=== PATIENT | male | born 1970 | race Caucasian/White ===

== ENCOUNTER 2020-11-07 10:02 | Inpatient (IN) | payer BC ==
[~2020-11-07] VITALS: Ht 175.3 cm; Wt 86.2 kg
--- NOTE | 2020-11-07 12:50 | NUR ---
REPORT RECEIVED FROM CECILLE GRUBBS. ANTONIO PTS ARRIVAL TO UNIT.
--- NOTE | 2020-11-07 12:56 | EKG ---
[facility] [address] [facility] [facility] [place], [place] [address] Signed Normal sinus rhythm Normal ECG No previous ECGs available Confirmed by STEPHANI DONOHUE MD ([id number]) on 11/07/2020 12:55:44 PM Electronically Signed By: STEPHANI DONOHUE MD 11/07/20 1256 PATIENT NAME: CAESAR LOPEZ JR Electrocardiogram DATE OF : 70 PHYSICIAN: STEPHANI DONOHUE MD REPORT #: [id number] REPORT IS CONFIDENTIAL AND NOT TO BE RELEASED WITHOUT AUTHORIZATION
--- NOTE | 2020-11-07 13:12 | NUR ---
PT ARRIVED TO MED/SURG. PT TRANSFERES SELF TO BED, STEADY ON FEET. PT ON 2L O2 BY NE WITH OXYGEN SATRUATIONS 90-95%, PT PLACED ON REMOTE TELEMETRY PULSE OX MONTORING. PT DENIES PAIN AND NAUSEA. PT OREINTED TO ROOM. DEMONSTRATES USE OF CALL LIGHT. PT ALERT AND OREINTED TO ALL, NERUO ASSESSMENT WNL. RHONCHI HEARD THROUGHOUT LUNGS. PT TACHPENIC AND LABORED BREATHING NOTED WITH ANY ACTIVITY AND DURING COUGHING FITS. SHALLOW BREATHING. I.S. USE TAUGHT PT DEMONSTRATES US OF I.S. REACHIGN 500ML X5 AND 750ML X2. COUGHING FITS NOTED. PT DROPS TO 87% DURING COUGHING TIMES. COUGH MEDICATION GIVEN (SEE MAR). PT REPORTS OCCATIONAL DIARRHEA RECENTLY, LAST EPISODE THIS MORNING. PT REPORTS "NO APPITITE AT ALL" WELL LOSS OF SENSE OF TASTE AND SMELL. PT NOTED TO DESATURATE TO 87% ON 2L . PT PLACED ON 4L O2 BY NE AT THIS TIME WITH OXYGEN SATURATIONS 90-92%. PRONING EDUCATION DONE WITH PT. PT PREFERES TO START WITH LEFT SIDE LYING POSITION. NO ADDITIONAL REQEUSTS OR COMPLAINTS AT THIS TIME. CALL LIGHT WITHIN REACH. BED RAILS UP.
--- NOTE | 2020-11-07 14:25 | NUR ---
PUMP ALARMING, INFUSION AND FLUSH COMPLETE. IV ASSESSED, WNL. BRISK BLOOD RETURN NOTED. LINE FLUSHED AND SALINE LOCKED PER PROTOCOL, ALCOHOL CAP APPLIED. PT RESTING IN BED WATCHING TV. PT DENIES PAIN AND NAUSEA. O2 SATURATIONS 94% ON 4L O2 BY NC. CALL LIGHT WITHIN REACH. BED RAILS UP.
--- NOTE | 2020-11-07 15:22 | NUR ---
THIS RN TO ROOM TO CHECK ON PT. PT RESTING ON BACK WATCING TV. O2 SATURATION REMAINS 90-94 ON 4L O2 BY C HUMDIFICATION ADDED TO NC. PT DENIES PAIN AND NAUSE. NO ADDITIONAL REQUESTS OR COMPLAINTS. CALL LIGHT WITHIN REACH. BED RAILS UP.
--- NOTE | 2020-11-07 16:27 | NUR ---
THIS RN TO ROOM TO CHECK ON PT. PT RESTING ON BACK. REPORTS HE HAS BEEN USING HIS I.S. AND REACHING ~600ML WITH EACH INTAKE. DINNER ORDER PLACED. PT DENIES PAIN AND NAUSEA. O2 AT 94% ON 4L O2 BY NC. PT DEMONSTRATES USE OF I.S. WITH THIS RN REACHING 500ML X3. NO ADDITIONAL REQUETS OR COMPLAINTS. CALL LIGHT WITHIN REACH. BED RAILS UP.
--- NOTE | 2020-11-07 16:37 | NUR ---
THIS RN TO ROOM TO CHECK ON PT. PT RESTING ON BACK WATCHING TV. DINNER ORDER PLACED FOR PT WHO STATES "I'M ACTUALLY A LITTLE HUNGRY." PT ENCOURAGED TO TRY PRONING POSITON. PT MOVES SELF INTO PRONE AND BEGINS A COUGHING FIT WHICH INHIBITS OXYGENATION. O2 INCREASED TO 6L AND COUGHING MEDICATION GIVEN. PT CALMS AFTER 15 MINUTES AND RETURNS TO BASELINE. PT ASSISTED, WITH SLOW MOVEMENTS ENCORUAGED INTO PRONE. PT AGREES TO STAY PRONING FOR 20 MINUTES. O2 SATURATIONS 93% ON 4L O2 BY NC. BED RAILSUP. CALL LIGHT VEGA DYER.
--- NOTE | 2020-11-07 17:00 | NUR ---
PTS CARLTON CALLED AND UPDATED ON PTS STATUS AND PLAN OF CARE. TULIOSYEDA VERBALIZES UNDERSTANDING OF PLAN OF CARE STATES HER QUESTIONS HAVE BEEN ANSWERED.
--- NOTE | 2020-11-07 17:05 | NUR ---
PT ADMITTED TODAY FOR COVID 19 PNEUMONIA. PT INDEPENDANT IN ROOM AND STEADY ON FEET AT THIS TIME. PT TOELRATING REGULAR DIET WITH MINIMAL APPTITIE. LUNG SHOULD SHOWING RONCHIN THROUGHOUT. FREQUENT COUGHING EPISODES NOTED, PRN MEDICATION GIVEN. PT ON 4L O2 BY NC WITH OXYGEN SATURATIONS ABOVE 90%. I.S. USE ENSURED, PT REACHING 500-750ML. PRONING PROTOCOLS EXPLAINED AND PT PARTICIPATING IN PRONING THIS SHIFT. PT VOIDING QUANTITY SUFFICIENT, PO HYDRATION ENCORUAGED. PT USES CALL LIGHT APPRORPRIATLY.
--- NOTE | 2020-11-07 18:11 | NUR ---
DINNER DELIVERED TO PT. PT RESTING ON BACK. STATES HE WAS ABLE TO STAY IN PRONING POSITION FOR 25 MINUTES. PT REORTS APPITTIE IS BETTER "I WANT TO EAT" BUT TASTE REMAINS HINDERED "BUT I CAN'T TATES IT." PT ASSISTED TO SITTING POSITION, OXYGEN SATURATIONS REMAIN ABOVE 90% ON 4L O2 BY NC WITH ACTIVITY OF EATING. PT DENIES ADDITIONAL REQUESTS OR COMPLAINTS. CALL LIGHT WITHIN REACH.
--- NOTE | 2020-11-07 19:31 | NUR ---
PATIENT SITTING IN BED IN SEWMI-FOWLERS POSITION ON 4L/NC WITH O2 SAT=93%. PATIENT HAS NO CARE NEEDS AT THIS TIME. CALL LIGHT IS IN REACH.
--- NOTE | 2020-11-07 21:01 | NUR ---
PATIENT RESTING IN BED IN SEMI-FOWLERS POSITION. ENCOURAGED PATIENT TO TURN TO HIS SIDES AND TO PRONE FOR AT LEAST 30 MINUTES TO 2HOURS AT A TIME THROUGHOUT THE NIGHT. PATIENT VERBALIZED UNDERSTANDING, BUT WAS NO INTERESTED IN PRONING EVEN THOUGH THIS RN INFORMED PATIENT I COULD HELP HIM DO IT. PATIENT ALSO REFUSED HIS ENOXAPARIN SQ INJECTION AND TOOK DOWN THE NAME OF THE MEDICATION TO RESEARCH ON HIS PHONE BEFORE HE DECIDES TO TAKE IT. COUGH SYRUP AND MELATONIN PO WERE GIVEN. PATIENT'S ICE WATER WAS REFILLED, VS COMPLETE, WELL THE EVENING ASSESSMENT. CALL LIGHT IS IN REACH AND PATIENT HAD NO OTHER CARE NEEDS AT THIS TIME.
--- NOTE | 2020-11-07 23:20 | NUR ---
PATIENT RESTING IN BED QUIETLY WATCHING TV. URINAL EMPTIED OF 175MLS. PATIENT REMAINS ON 4L/NC AT A SAT=93%. PATIENT VOICED NO CARE NEEDS AT THIS TIME. CALL LIGHT IS IN REACH.
--- NOTE | 2020-11-08 01:20 | NUR ---
PATIENT VS AND ASSESSMENT COMPLETE. PATIENT REMAINS ON 4L/NC AT 93% SATURATION. COUGH SYRUP GIVEN AND PATIENT GIVEN WARM BLANKETS AND ROOM TEMP TURNED UP TO 70F. PATIENT'S CALL LIGHT IS IN REACH AND HE HAS NO OTHER NEEDS AT THIS TIME.
--- NOTE | 2020-11-08 02:30 | NUR ---
CALL LIGHT ANSWERED. ICE WATER X2 CUPS PROVIDED. EMPTIED URINAL. NO OTHER NEEDS AT THIS TIME.
--- NOTE | 2020-11-08 04:31 | NUR ---
pATIENT RESTING QUIETLY ON HIS RIGHT SIDE, EYES CLOSED, RESPIRATIONS REGULAR AND EVEN, AND CALL LIGHT IS IN REACH. O2 SATS ARE 92% ON 4L/NC.
--- NOTE | 2020-11-08 05:27 | NUR ---
PATIENT'S AM LABS DRAWN. VS ARE STABLE EXCEPT A FEVER OF 100.6F AND PO TYLENOL WAS GIVEN. PATIENT IS VOIDING QUANTITY SUFFICIENT. PATIENT REMAINS ON 4L/NC WITH AN O2 SAT OF 91%. PATIENT DENIED THE NEED FOR COUGH MEDICATION AT THIS TIME AND DENIED ANY PAIN. PATIENT HAS NO OTHER CARE NEEDS AT THIS TIME AND CALL LIGHT IS IN REACH.
--- NOTE | 2020-11-08 08:22 | NUR ---
Pateint has had am care, vitals, and I&Os done. Call light is in reach. Patient is asking for more water with ice. There are no other requests. Paitent refused breakfast. Patient has a high temp. 100.1.
--- NOTE | 2020-11-08 08:30 | NUR ---
Patient in bed watching tv in semi-fowlers position, a&ox4. Patient's respirations non labored at this time, sp02 93% on 3.5l per nc. Patient reports he feels sob at rest. Encouraged patient to prone at this time and as much as possible, pt reports he understand the benefits of proning and will self prone shorly. Clear ensures provided. Pt reports decreased appetite and inability to taste much. Patient has a low grade temperature at this time.
--- NOTE | 2020-11-08 08:50 | NUR ---
Tessalon yury 100mg po admin for cough.
--- NOTE | 2020-11-08 09:15 | NUR ---
Patient status update provided to patient's [employer] per phone.
--- NOTE | 2020-11-08 13:00 | NUR ---
Patient in semi-fowlers position in bed. Vital signs taken, oxygen 93% on 8L per nc. Patient reports continued shortness of breath. Positioned patient to right lateral side. Patient reports he will self prone after a bit. Respirations 32/min. Cool compress provided as pt reports he feels hot. Fresh water at bedside. Patient afebrile at this time.
--- NOTE | 2020-11-08 18:17 | NUR ---
Patient vitals, I&Os are complete. Water was refilled. Patient has no requests at this time. I asked the patient if they have the urge to use the commode but the patient said no. The patient has not had a BM all day. The RN is notified. Call light is in reach.
--- NOTE | 2020-11-08 20:03 | NUR ---
RECEIVED REPORT FROM DAY SHIFT RN. PATIENT IS RESTING IN BED. PATIENT DENIES ANY NEEDS. CALL LIGHT IN REACH.
--- NOTE | 2020-11-08 22:00 | NUR ---
PATIENT ASSESEMENT COMPLETED. PATIENT IS RESTING IN BED WATCHING TV. PATIENT IS GRUNTING AND TAKING SLOW SHORT BREATHS. PATIENT DENIES BEING SOB. PATIENT EDUCATED ON PURSED LIPPED BREATHING AND FOCUSING ON SLOWING HIS BREATH. PATIENT WAS ABLE TO DEMONSTRATE PURSED LIPPED BREATHING. PATIENT WAS ABLE TO SLOW RR AND GRUNTING HAS SUBSIDE. PATIENT IS ON 7.5L VIA NC. PATIENT IS AL AND IV FLUSHES WELL. PATIENTS EVENING MEDICATIONS GIVEN PER ORDER. VITALS TAKEN AND RECORDED. INTKAE AND OUPUT RECORDED. NO FURTHER NEEDS NOTED. CALL LIGHT IN REACH.
--- NOTE | 2020-11-09 00:20 | NUR ---
PATIENT IS IN BED RESTING AND WATCHING TV. PATIENT REMAINS ON 7.5L VIA NC AND HIS OXYGEN SATURATION IS 97%. PATIENT DENIES ANY SOB. NO NEEDS NOTED. CALL LIGHT IN REACH.
--- NOTE | 2020-11-09 01:56 | NUR ---
PATIENT IS RESTING IN BED WITH EYES CLSOED, RR 19. OXYGEN SATURATION IS 94%. URINAL EMPTIED. CALL LIGHT IN REACH.
--- NOTE | 2020-11-09 06:35 | NUR ---
PATIENT ASSESMENT COMPLETED. PATIENT REMAINS ON 7.5L VIA AR. PATIENT DENIES ANY SOB. VITALS TAKEN AND RECORDED. INTAKE AND OUPUT RECORDED. PATIENTS LABS DRAWN AND SENT TO THE LAB. PATIENTS IV FLUSHES WELL AND IS SL PER ORDER. PATIENT IS ON TELE #2 AND OXYGEN SATURATION IS 92%. PATIENTS ICE WATER REFILLED. URINAL EMPTIED. PATIENT DENIES ANY NEEDS. CALL LIGHT IN REACH.
--- NOTE | 2020-11-09 07:30 | NUR ---
REPORT RECEIVED FROM RUDI ODEN. PT RESTING IN BED ON LEFT SIDE, OXYGEN SATURATION 91% ON 7.5L O2 BY HIGH FLOW HUMIDIFIED NC. PT DENIES REQUESTS OR COMPLAINTS AT THIS TIME. CALL LIGHT WITHIN REACH. BED RAILS UP.
--- NOTE | 2020-11-09 08:22 | NUR ---
MORNING ASSESSMENT AND MEDICATION DUE. PT IN PRONE POSITION WITH OXYGEN SATURATIONS 90-93% ON 7.5L O2 BY NM. PT REPORTS HE "SLEPT ALL NIGHT." AND STATES HE IS GENERALLY FEELING BETTER, "JUST TIRED OF WORRING ABOUT IT." PT DENIES PAIN, NAUSE AND ANY DIARRHEA. PT CONTINUES TO HAVE COUGHING FITS WITH GRUNTING, ABDOMINAL MUSCLE USE, AND RETRACTIONS NOTED DURING COUGHING FITS. LUNG SOUNDS CLEAR BUT VERY TIGHT AND DEMINISHED IN ROSA BASES. TACHYPENA NOTED THROUGHOUT WITH SHALLOW BREATHING. EDUCTION DONE WITH PT REGARDING MINDFUL BREATHING AND SLOWING RESPIRATORY RATE. PT DEMONSTRATES UNDERSTANDING AND WORK OF BREATHING IMPROVES WITH SLOW BREATHING. PT CONTINUES TO REPORT LACK OF APPTITIE AND VERY LITTLE INTAKE. CLEAR ENSURE PROVIDED. O2 INCREASED TO 16L O2 BY NM FOR SHOWER. STAND BY ASSIST UP TO SHOWER. LINENS CHANGED. PT INDEPENDANT WITH SHOWER, COUGH AND GRUNTING INCREASES WITH SHOWER/ACTIVITY. BUT PT ABLE TO MAINTAIN OXYGEN SATURATIONS 88-92%. PT DEMONSTRATES USE OF CALL LIGHT. CALL LIGHT WITHIN REACH.
--- NOTE | 2020-11-09 08:38 | NUR ---
PT FINISHED WITH SHOWER. BACK TO BED. O2 87-91% ON 16L O2 WITH ACTIVITY. PT BACK TO BED, INDEPENDANT. PT WEANED BACK TO 7L 2 BY MD WITH OXYGEN SATRUATIONS 90-93%. PT REMAINS SITTING AT EDGES OF BED. NO ADDITIONAL REQEUSTS OR COMPLAINTS. CALL LIGHT WITHIN REACH.
--- NOTE | 2020-11-09 09:58 | NUR ---
Patient vitals, I&Os are done. Call light is in reach and patient is talking with RN. Patient will be served an ensure with ice.
--- NOTE | 2020-11-09 10:01 | NUR ---
Patient had 31 resp. and 100.1 Temp, RN was notified and in the room.
--- NOTE | 2020-11-09 10:03 | NUR ---
THIS RN TO ROOM TO CHECK ON PT. PT NOTED TO HAVE INCREASED RESPIRATION AND TEMPERATURE. TEMPERATURE REASSESED AND FOUND TO BE 100.1 DEGREES FARIGHENIGHT. TYELNOL GIVEN. NOTIFIED PER PROTOCOL. REMDESIVIR STARTED. PT WEANED BACK TO 7L O2 BY ME, MAINTAINING OXGYEN SATURATIONS 89-93%. PT ENCOURAGED TO PRONE. PT DENICLINES AT THIS TIME. I.S. USE DEMONSTRATED PT REACHIES 500ML X5. PT LYING ON BACK WITH HEAD OF BED ELEVATD TO 11 DEGREES. NO ADDITIONAL REQUESTS OR COMPLAINTS. CALL LIGHT ELENAHTIN REACH. BED RAILS UP.
--- NOTE | 2020-11-09 10:32 | NUR ---
PUMP ALARMING, INFUSION AND FLUSH COMPLETE. PT CONTINUES RESTING IN BED. IV ASSESSED, WNL. SALINE LOCKED AND ALCHOL CAP APPLIED PER PROTOCOL. MD TO BED SIDE FOR ROUNDS. PT VERBALIZES UNDERSTANDING OF PLAN OF CARE AND STATES HIS QUESTIONS HAVE BEEN ANSWERED. PT REPOSOTIONED TO LEFT SIDE. REMAINS ON 7L O2 BY NC WITH OXYGEN SATURATIONS 90-92%. CALL LIGHT WIHTIN REACH. BED RAILS UP.
--- NOTE | 2020-11-09 11:15 | NUR ---
PT READY FOR SHOWER. HYPEROXYGENATED FROM 98-100% ON 16L O2 BY HIGH FLOW NC. STAND BY ASSIST UP TO SHOWER. PT INDEPENDANT IN SHOWER. LINENS CHANGED. PT DEMONSTRATES USE OF CALL LIGHT. CALL LIGHT WITHIN REACH.
--- NOTE | 2020-11-09 11:23 | NUR ---
THIS RN TO ROOM TO CHECK ON PT. PT RESTING IN BED ON LEFT SIDE. O2 SATURATIONS 92% ON 7L O2 BY NC. LUNCH ORDER PLACED. TEMPEARTURE REASSESSED, NOW 98.0. PT DENIES ADDITIONAL REQUESTS OR COMPLAINTS. CALL LIGHT ELENAHTIN REACH. BED RAILS UP.
--- NOTE | 2020-11-09 11:45 | NUR ---
PT FINISHED WITH SHOWER. O2 SATURATIONS DROPING TO 86% WITH ACTIVITY/SHOWER ON 16L O2 BY NM. PT AMBULATES BACK TO BED. UNSTEADY ON FEET AT TIMES, REPORTS OCCATIONAL DIZZINESS. OXYGEN SATURATIONS RECOVERS AFTER 5 MINUTES TIME. PT WEANED BACK TO 10L O2 BY NM WITH OXYGEN SATURATIONS 90-92%. CALL LIGHT WIHTIN REACH. BED RAILS UP. PT DECLINES LUNCH STATING HE ONLY WANTS CLEAR ENSURE.
--- NOTE | 2020-11-09 12:24 | NUR ---
LUNCH ARRIVED. DELIVERED TO PT. SBA UP TO CHAIR FOR LUNCH. OXYGEN SATURATION REMAINS ABOVE 90% ON 7L O2 BY NC. NO ADDITIONAL REQUESTS OR COMPLAINTS. CALL LIGHT WITHIN REACH.
--- NOTE | 2020-11-09 12:52 | NUR ---
No change in plan for dc. Pt cont. on 7.5 .
--- NOTE | 2020-11-09 13:25 | NUR ---
AFTERNOON ASSESSMENT DUE. PT RESTING IN BED ON BACK WATCHING TV. PT DENIES PAIN, NAUSEA AND DIARRHEA. PT MAINTAINING OXYGEN SATURATIONS ABOVE 90% ON 7L O2 BY NC. ABDOMINAL MUSCLE USE WITH BREATHING CONTINUES WELL OCCATIONAL COUGHING FITS THAT INCLUDE GRUNTING. COUGH MEDICATION GIVEN. DRY COUGH CONTINUES, NO SPUTUM NOTED. PT TAKING VERY SHALLOW RAPID BREATHS WITH RR 24-32. PT TAUGHT MINDFUL BREATHING AND IS ABLE TO SLOW AND DEEPEN BREATHS. PT REPORTS HE IS PRACTICING THIS TECHNIQUE WITH GOOD RESULTS. OXYGEN SATURATIONS CLIMBS TO 94% WITH MINDFUL BREATHING. I.S. USE DEMONSTRATED. PT REACHES 500X4 AND 750 X 2. PT ENCOURAGED TO PRONE. PT AGREES. ASSISTED INTO PRONE POSITION. PT REPORTS FEELING SWEATY AND HAVING "HOT AND COLD FLASHES"PT REPORTS HE IS CURRENTLY "REALLY HOT." TEMPERATURE 98.1. PT DRINKING CLEAR ENSURE AND REPORTS "I CAN TASTE THAT." REPORTS TASTE IS MILDLY IMPROVING. NO ADDITIONAL REQUESTS OR COMLAINTS. O2 SATURATION 97% IN PRONE POSITION ON 7L O2 BY NC. PT WEANED TO 6L O2 BY NC AND MAINTAINING OXGYEN SATRUATIONS ABOVE 90%. NO ADDITIONAL REQUESTS OR COMLAINTS. CALL LIGHT NibuJOSEFINA DYER. BED RAILS UP.
--- NOTE | 2020-11-09 15:29 | NUR ---
THIS RN TO ROOM TO CHECK ON PT. PT LYING ON BACK. PT STATES HE WAS ABLE TO MAINTAIN PRONING POSITION FOR 30 MINUTES. PT ENCROUAGED TO LYE ON HIS SIDE FOR WHILE. PT AGREES. STARTES COUGHING WITH REPOSITIONING. SEE MAR FOR MEDICATION GIVEN. PT LYING ON RIGHT SIDE. CALL LIGHT WITHIN REACH. O2 SATURATIONS 89-92% ON 6L O2 BY NC.
--- NOTE | 2020-11-09 15:47 | NUR ---
PTS FIONA CALL AND UPDATED ON PTS STATUS. TELMA VERBALIZES UNDERSTANDING AND STATES HER QUESTIONS HAVE BEEN ANSWERED.
--- NOTE | 2020-11-09 16:27 | NUR ---
PT HERE FOR COVID RELATED PNEUMONIA. PT UP WITH STAND BY ASSIST FOR SHOWER AND UP TO CHAIR THIS SHIFT. PT TOELRATING REGULAR DIET WITH MODERATE APPITITIE. CLEAR ENSURE PROVIDED. OXGYEN NEEDS DEPENDANT ON POSITION. 16L O2 BY NC WITH SHOWER AND ACTIVITY, 7L O2 BY NC WHEN UP TO CHAIR AND RESTING IN BED. PT WEANED TO 6L O2 BY NC WITH PRONING. OXYGEN SATURATIONS MAINTAINED ABOVE 90%. PT DENIES PAIN, NAUSEA AND DIARRHEA THIS SHIFT. FAMILY UPDATED. PRN COUGH MEDICAITONS INCREASED AND GIVEN MORE FREQUENTLY TO HELP WITH COUGHING FITS. PT VOIDING QUANTITY SUFFIICENT. PT USES CALL LIGHT APPROPRIATLY AND MAKES NEEDS KNOWN.
--- NOTE | 2020-11-09 17:25 | NUR ---
THIS RN TO ROOM TO CHECK ON PT. DINNER DELIVERED. PT PRONING, O2 SATRATIONS 98-100% ON 6L O2 BY NC. O2 WEANED TO 4L BY NC WITH OXYGEN SATURATIONS ABOVE 90%. PT DENIES ADDITIONAL REQUESTS OR COMPLAINTS. CALL LIGHT WITHIN REACH. BED RAILS UP.
--- NOTE | 2020-11-09 18:30 | NUR ---
THIS RN TO ROOM TO CHECK ON PT. PT READY FOR DINNER AND SITTING UP IN BED. O2 DROPS TO 86-89% ON 6L O2 BY NC. O2 INCREASED TO 7L WHILE EATING WITH O2 SATURATIONS 90-94%. PT DENEIS PAIN AND NAUSEA. PT DENIES ADDITIONAL REQUSTS OR COMPLAINTS. CALL LIGHT WIHTIN REACH. BED RAILS UP.
--- NOTE | 2020-11-09 19:26 | NUR ---
REPORT GIVEN TO CECILLE GRIJALVA, WHO IS ASSUMING CARE OF PT.
--- NOTE | 2020-11-09 20:00 | NUR ---
RECEIVED REPORT FROM DAY SHIFT RN. PATIENT IS RESTING IN BED WATCHING TV. PATIENT DENIES ANY SOB. PATIENT DENIES ANY NEEDS. CALL LIGHT IN REACH.
--- NOTE | 2020-11-09 21:25 | NUR ---
PATIENT ASSESMENT COMPLETED. URINAL EMPTIED AND INTAKE AND OUTPUT RECORDED. VITALS TAKEN AND RECORDED. PATIENT REMAINS ON 7L VIA NC HI-FLOW. PATIENT DENIES ANY SOB. PATIENT SCHEDULED MEDICATIONS GIVEN PER ORDER. ICE WATER REFILLED. PATIENT DENIES ANY NEEDS. PATIENT IS ON TELE # 10 FOR OXYGEN SATURATION. CALL LIGHT IN REACH.
--- NOTE | 2020-11-09 23:43 | NUR ---
PATIENT CALLED AND REQUESTED "COUGH MEDCIATION". PATIENT GIVEN PRN COUGH MEDICATION PER ORDER. PATIENT IS RESTING IN BED. PATIENT DENIES ANY SOB. PATIENT DENIES ANY FURTHER NEEDS. CALL LIGHT IN REACH.
--- NOTE | 2020-11-10 01:06 | NUR ---
PATIENT AWOKE WHEN ROOM WAS ENTERED. PATIENT DENIES ANY NEEDS. CALL LIGHT IN REACH.
--- NOTE | 2020-11-10 02:14 | NUR ---
PATIENT IS RESTING IN BED WITH EYES CLOSED. BREATHING IS EVEN AND UNLBAORED, RR 20. TELE #10, OXYGEN SATURATION IS 97%. CALL LIGHT IN REACH.
--- NOTE | 2020-11-10 05:40 | NUR ---
PATIENT ASSESMENT COMPLETED. LABS DRAWN AND SENT TO LAB. VITALS TAKEN AND RECORDED. URINAL EMPTIED. INTAKE AND OUPUT RECORDED. PATIENT TITRATED DOWN TO 6L VIA NC HI-FLOW. PATIENT DENIES ANY SOB. PATIENT DENIES ANY PAIN. PATIENTS ICE WATER REFILLED. NO FURTHER NEEDS NOTED. CALL LIGHT IN REACH.
--- NOTE | 2020-11-10 07:20 | NUR ---
REPORT RECEIVED FROM RUDI ODEN. PT RESTING IN BED, O2 SATURATIONS AT 98% ON 6L O2 BY NC. PT DENIES REQUESTS OR COMPLAINTS. CALL LIGHT WITHIN REACH. BED RAILS UP.
--- NOTE | 2020-11-10 08:00 | NUR ---
BREAKFAST ARRIVED. STAND BY ASSIST UP TO CHAIR FOR BREAKFAST. OXGYEN SATURATIONS DROP TO 86% WHILE UP TO CHAIR, O2 INCREASED TO 7L O2 BY NC. OXYGEN SATURATIONS CLIMBS TO 90-92%. PT EATING BREAKFAST. NO ADDITIONAL REQUESTS OR COMPLAINTS AT THIS TIME. CALL LIGHT WITHIN REACH.
--- NOTE | 2020-11-10 09:15 | NUR ---
MORNING ASSESSMENT AND MEDICATION DUE. THIS RN TO ROOM. PT UP TO CHAIR, FINISHED WITH BREAKFAST. O2 SATURATIONS 87% ON 6L O2 BY MA. OXGYEN WEANED TO 5L O2 BY MA WITH OXYGEN SATURATIONS REMAINING ABOVE 90%. IV ASSESSED, WNL, IV INFUSION STARTED. PT DENIES PAIN, NASUEA AND DIARRHEA. PT REPORTS "A BLOODY NOSE" WHILE BLOWING NOSE THIS MORNING. 3 TISSUES USED, BLEEDING STOPPED IN UNDER 30 SECTONDS. HUMIDIFICATION REMAINS IN PLACE TO MA. PT REPROTS APPITTIE IS IMPROVING AND TATSTE IS "SOMEWHAT" BACK." LUNG SOUNDS CLEAR BUT TIGHT IN UPPER LOBES. RIGHT LOWER LOBE HAS SMALL AMOUNT OF FINE CRACKELS. I.S. USE DEMONSTRATED REACHING 1000ML X5. PT REMAINS ON 5L O2 BY MA WITH OXYGEN SATURATIONS ABOVE 90%. PT ENCOURAGED TO SPEND TIME UP IN ROOM TO DAY OR PRONING IF IN BED. PT VERBALIZES UNDERSTANDING. NO ADDITIONAL REQUESTS OR COMPLAINS. CALL LIGHT VEGA DYER.
--- NOTE | 2020-11-10 10:16 | NUR ---
PUMP ALARMING, INFUSION AND FLUSH COMPLETE. IV ASSESSED, WNL. IV SALINE LOCKED PER PROTOCOL. PT INDEPENDANT INTO PRONDING POSITION. OXGYEN SATURATIOSN CLIMB TO 98% ON 5L O2 BY NC. O2 WEANED TO 4L O2 BY NC WITH OXYGEN SATURATIONS ABOVE 90%. PT DENIES ADDITIONAL REQUESTS OR COMPLAINTS. CALL LIGHT WIHTIN REACH. BED RAILS UP.
--- NOTE | 2020-11-10 10:30 | NUR ---
No change in plan for dc. Remains on .
--- NOTE | 2020-11-10 10:51 | NUR ---
PATIENT PRONING IN BED. WOKE TO VOICE. VITALS AND I&OS CHARTED. LUNCH ORDERED. RN ROSETTE IN ROOM, CALL LIGHT IN REACH.
--- NOTE | 2020-11-10 10:52 | NUR ---
PATIENT SBA TO CHAIR, RN ROSETTE RAM
--- NOTE | 2020-11-10 10:57 | NUR ---
THIS RN TO ROOM TO CHECK ON PT. PT RESTING IN PRONE POSITION, O2 SATURATIONS 98-100 ON 4L O2 BY NC. PT WEANED TO 2L O2 BY NC. LUNCH ORDER PLACED. VITAL SIGNS STABLE. LINENS CHANGED WITH ASSISTNCE FROM FRANCIS FINISHING SUPERVISOR [employer]ETS. STAND BY ASSIST UP TO CHAIR, PT REMAINS ON 2L O2 BY NC WITH O2 SATURATIONS ABOVE 90%. PT DENIES ADDITIONAL REQUESTS OR COMPLAINTS. CALL LIGHT [facility].
--- NOTE | 2020-11-10 12:21 | NUR ---
LUNCH ARRIVED. PT UP TO CHAIR. TOLERATING 2L O2 BY NC WITH OXYGEN SATURATIONS 89-93%. PT EATING LUNCH. DENIES PAIN AND NAUSEA. NO ADDITIONAL REQUESTS OR COMPLAINTS. CALL LIGHT WITHIN REACH.
--- NOTE | 2020-11-10 14:30 | NUR ---
AFTERNOON ASSESSMENT DUE. THIS RN TO ROOM. PT UP TO CHAIR TALKING ON PHONE. PT ABLE TO CARRY ON CONVERSATION WITH FRIEND ON PHONE WITH OUT PAUSING TO BREATH OR COUGH. PT LAUGHING AND REPORTS TO HIS FRIEND "I'M DOING PRETTY WELL." PT DENIES PAIN AND NAUSEA. PT REMAINS ON 2L O 2 BY GA WITH OXYGEN SATURATIONS ABOVE 90%. PTS LUNG SOUNDS MUCH CLEARER THIS AFTERNOON, PT MOVING MORE AIR THROUGHOUT LUNGS. TACHYPNEA IMPROVING, PT ABLE TO TAKE DEEPER BREATHS. I.S. USE DEMONSTRATED (PT REACHES 600ML X7). PT ENCOURAGED TO CONTINUE USING I.S. PT REPORTS HIS COUGH IS UNDERCONTROL AND DENIES NEED FOR MEDICATION. PT ENCOURAGED TO PRONE, AGREES AND POSITONS SELF INTO PRONING POSITION. OXGYEN SAUTURATIONS MAINTAINING ABOVE 90% ON 2L O2 BY GA. NO ADDITIONAL REQUESTS OR COMPLAINTS AT THIS TIME. CALL MEHREEN DYER.
--- NOTE | 2020-11-10 16:09 | NUR ---
THIS RN TO ROOM TO CHECK ON PT. PT PRONING, OXGYEN SATURATION UP TO 99% ON 2L O2 BY NC. DENIES PAIN AND NAUSEA. PT INDEPENDANT UP TO CHAIR. OXGYEN SATURATIONS MAINTAIN ABOVE 90% ON 2L O2 BY NC. PT NOTED TO BE ITCHING LEGS, DRY SKIN NOTED. PT DENIES OTHER S/S OF ALLERGIES. LOTION PROVIDED. CALL LIGHT WITHIN REACH. BED RAILS UP.
--- NOTE | 2020-11-10 17:00 | NUR ---
DINNER ARRIVED, DELIVERED TO PT. PT UP TO CHAIR FOR DINNER. OXGYEN SATURATIONS ABOVE 90% ON 2L O2 BY NC. PT DENIES PAIN AND NAUSEA. NO ADDITIONAL REQUESTS OR COMPLAINTS. CALL LIGHT WITHIN REACH.
--- NOTE | 2020-11-10 18:14 | NUR ---
THIS RN TO ROOM TO CHECK ON PT. PT REMAINS UP TO CHAIR, FINISHED WITH DINNER. OXYGEN SATURATIONS MAINTAINING ABOVE 90% ON 2L O2 BY NC. VITAL SIGNS STABLE. WATER REFILLED. PT DEMONSTRATES USE OF I.S. REACHING 750ML. PT DENIES ADDITIONAL REQUESTS OR COMPLAINTS. CALL LIGHT WITHIN REACH. BED RAILS UP.
--- NOTE | 2020-11-10 18:22 | NUR ---
PTS , CARLTON, CALLED WITH UPDATE ON PTS STATUS. CARLTON VERBALIZES UNDERSTANDING OF PLAN OF CARE AND STATES HER QUESTIONS HAVE BEEN ANSWERED.
--- NOTE | 2020-11-10 18:42 | NUR ---
PT HERE FOR COVID RELATED PNEUMONIA. PT UP IN ROOM WITH STAND BY ASSIST THIS SHIFT. PT TOELRATING ACITIVITY WELL. PT HAS INCREASED APPITTIE THIS SHIFT AND REPORTS TATES IS RETURING. PT PARITICIPATING IN PRONING PROTOCOLS. PT AFEBIRAL THIS SHIFT. USES I.S. REACHING ~500ML. PT ON 2L O2 BY NC WITH OXYGEN SATURATIONS ABOVE 90%. PTS FAMILY UPDATED. PT ANTICIPATING DISCHARGE TOMORROW. PT VOIDING QUANTITY SUFFICIENT. PT USES CALL LIGHT AND MAKES NEEDS KNOWN.
--- NOTE | 2020-11-10 19:53 | NUR ---
RECEIVED REPORT FROM DAY SHIFT RN. PATIENT IS RESTING IN CHAIR. NO NEEDS NOTED. CALL LIGHT IN REACH.
--- NOTE | 2020-11-10 21:35 | NUR ---
ASSESMENT COMPLETED. VITALS TAKEN AND RECORDED. INTAKE AND OUPUT RECORDED. PATIENT DENIES ANY SOB AND IS ON 2L VIA NC. PATIENT GIVEN SCHEDULED MEDICATIONS PER ORDER. PATIENT PROVIDED WITH FRESH ICE WATER. RT IS IN THE ROOM. PATIENT DENIES ANY FURTHER NEEDS. CALL LIGHT IN REACH.
--- NOTE | 2020-11-11 01:18 | NUR ---
TELE BATTERY REPLACED. PATIENT REMAINS ON 2L VIA NV. PATIENT BRIEFLY AWOKE AND DENIES ANY NEEDS. CALL LIGHT IN REACH.
--- NOTE | 2020-11-11 02:07 | NUR ---
PATIENT GIVEN PRN COUGH MEDICATION PER REQUEST. PATIENT DENIES ANY FURTHER NEEDS. ICE WATER REFILLED. CALL LIGHT IN REACH.
--- NOTE | 2020-11-11 05:51 | NUR ---
PATIENTS VITALS TAKEN AND RECORDED. URINAL EMPTIED. INTAKE AND OUPUT RECORDED. PAIENT REMAINS ON 2L VIA NC. PATIENT DENIES ANY SOB. PATIENTS ICE WATER REFRESHED. PATIENT IS EAGER TO GO HOME TODAY. DISCUSSED AT HOME CARE WITH PATIENT AND REITERATED ALL HE HAS LEARNED AT HIS STAY HERE AT THE HOSPITAL. PATIENT VERBALIZES UNDERSTANDING. NO FURTHER NEEDS NOTED. CALL LIGHT IN REACH.
--- NOTE | 2020-11-11 07:13 | NUR ---
REPORT RECEIVED FROM CECILLE GRIJALVA. PT RESTING IN BED ON BACK WITH HEAD OF BED ELEVATED. PT OTLERATING 2L O2 BY [facility] O2 SATURATIONS ABOVE 90%, 94% AT THIS TIME. PT DENIES REQUESTS OR COMPLAINTS. CALL LIGHT WITHIN REACH. BED RAILS UP.
--- NOTE | 2020-11-11 09:47 | NUR ---
NOtified in 829 meeting pt would like to dc today. 930 spoke with Moises and he states he plans on dc today. He would like to use [employer] for his 02. Received 02 qualifier from RT and pt will need 2L cont. on discharge. Will fax chart to [facility] when note entered.
--- NOTE | 2020-11-11 09:52 | NUR ---
MORNING ASSESSMENT AND MEDICATION DUE. PT RESTING IN BED WITH HEAD OF BED ELEVATED TO 58 DEGREES. PT DENIES PAIN AND NAUSEA. PT REPORTS HE HAS COMPLETED HIS HOME OXYGEN TRIAL WITH RT AND WAS ABLE TO BE WEANED TO ROOM AIR WHILE RESTING. O2 SATURATIOSN 92% ON ROOM AIR AT THIS TIME. PT PLACED ON 2L FOR ACTIVITIES TO MAINTAIN OXYGEN SATURATIONS ABOVE 90%. LUNG SOUNDS CLEAR THROUGHOUT. I.S. USE DEMONSTRATED, PT REACHES 1000ML X5. PT REPORTS COUGHTING UP "LUGIE COLOR" SPUTUM. PT REPORTS HIS TASTE HAS IMPROVED. PT REPORTS HE HAD A BOWEL MOVEMENT LAST NIGHT. DENIES DIARRHEA AND CONSTIPATION. CLEAR ENSURE PROVIDED FOR EXTRA NUTRITION PER PT REQUEST. PT PLANS TO TAKE SHOWER AFTER IV MEDICAITON IS COMPLETE. NO ADDITIONAL REQUESTS OR COMPLAINTS. CALL LIGHT VEGA DYER. BED RAILS UP.
--- NOTE | 2020-11-11 10:31 | NUR ---
PUMP ALARMING, INFUSION AND FLUSH COMPLETE. IV FLUSHED AND SALINE LOCKED PER PROTOCOL. PT REQUESTS IV TO BE DC'D AT THIS TIME. PT VERBALISE UNDERSTANDING THAT ANOTHER IV WILL BE STARTED IF THE NEED ARISES, PT GIVE CONSENT FOR THIS TO HAPPEN IF NEEDED. IV DC'D PER PROTOCOL, GAUZE AND COBAN APPLIED. PT UP TO SHOWER. 2L O2 BY NC IN PLACE FOR SHOWER WITH OXGYEN SATURATIONS MAINTAINING ABOVE 90%. PT DENIES ADDITIONAL REQUESTS OR COMPLAINTS. CALL LIGHT WITHIN REACH. PT INDEPENDANT IN SHOWER.
--- NOTE | 2020-11-11 11:00 | NUR ---
PT FINISHED WITH SHOWER, DRESSED (INDEPENDANTLY) IN CLOTHES FROM HOME. OXGYEN SATURATIONS 92% ON ROOM AIR PT IS RESTING IN CHAIR. PT DECLINES LUNCH STATING HE WOULD RATHER EAT WHEN HE GETS HOME. WATER REFILLED. CPOX REMAIN IN PLACE. NO ADDITIONAL REQUESTS OR COMPLAINTS AT THIS TIME. CALL LIGHT WITHIN REACH.
--- NOTE | 2020-11-11 11:44 | NUR ---
THIS RN TO ROOM TO UPDATE PT ON PLAN OF CARE AND PLAN FOR DISCHARGE. PT UP TO CHAIR. RESTING WITH EYES CLOSED. AWAKENS TO VOICE. PT VERBALIZES UNDERSTANDING OF PLAN OF CARE. OXYGEN SATURATIONS ABOVE 90% ON ROOM AIR WHILE PT RESTS. LUNCH ORDER PLACED. CALL LIGHT WITHIN REACH. NO ADDITIONAL REQUESTS OR COMPLAINTS.
--- NOTE | 2020-11-11 12:06 | NUR ---
Face sheet, 02 qualifier, rX, progress notes, H&P. Faxed to [facility]. Called and spoke with [facility] and they state to send pt. home with [address] [place] [address] and they will call pt and set up 02 later today.
--- NOTE | 2020-11-11 13:00 | NUR ---
LUNCH ARRIVED DELIVERED TO PT. PT REMAINS UP TO CHAIR, OXGYEN SATURATIONS ABOVE 90% ON ROOM AIR WHILE RESTING. PT UPDATED ON DISCHARGE PLAN. DISCHARGE EDUCATION DONE WITH PT. PT VERBALIZES UNDERSTANDING AND STATES HIS QUESTIONS HAVE BEEN ANSWERED. NO ADDITIONAL REQUESTS OR COMPLAINTS. CALL LIGHT WITHIN REACH.
[2020-11-11] MEDS ORDERED: DEXAMETHASONE6 MG PO (13:06)
--- NOTE | 2020-11-11 13:56 | NUR ---
PT READY FOR DISCHARGE. PT DRESSED SELF AFTER SHOWER. VITAL SIGNS STABLE. PT CONTINUES ON 2L O2 BY NC WITH ACTIVITIES AND ROOM AIR WHILE RESTING WITH OXGYEN SATURATIONS ABOVE 90%. DISCHRAGE INSTRUCTIONS REVIEWED WITH PT. PT VERBALIZES UNDERSTANDING OF INSTRUCTIONS, MEDICATIONS, HOME OXGYEN USE, AND FOLLOW UP. PT TRANSFERSE SELF TO WHEEL CHAIR AND DEMONSTRATES USE OF HOME OXYGEN TAKEN. TANK SENT WITH PT. PT WHEELED FROM MED/SURG TO MEET HIS , NO ADDITIONAL REQUESTS OR CONCERNS.
== END 2020-11-11 13:55 | disposition home or self-care (01) | DRG 177 ==
LOC: ED 10:02 → MS 11:49
PROVIDERS: ADMIT Internal Medicine; ATTEND Internal Medicine
PROC: 8E0ZXY6 Isolation (ICD-10-PCS; principal; 2020-11-07)
PROC: 3E0333Z Introduction of Anti-inflammatory into Peripheral Vein, Percutaneous Approach (ICD-10-PCS; 2020-11-07)
PROC: XW033E5 Introduction of Remdesivir Anti-infective into Peripheral Vein, Percutaneous Approach, New Technology Group 5 (ICD-10-PCS; 2020-11-07)
DX: U07.1 COVID-19 (principal); J96.01 Acute respiratory failure with hypoxia; J12.82 Pneumonia due to coronavirus disease 2019
CPT/HCPCS: 71045; 80053; 83735; 84484; 85025; 93005; 93010; 94760; 94761; 94762; A9270; J1100; J1650; J7050

== ENCOUNTER 2024-05-02 09:40 | Day surgery (SDC) | payer BC ==
[2024-04-30 14:48] VITALS: BP 133/88
[~2024-05-02] VITALS: Ht 175.3 cm; Wt 86.4 kg
[~2024-05-02 09:40] MED LIST: CEFAZOLIN SODIUM 2 GM/20 ML SYR IV SCH; CYCLOBENZAPRINE10 MG PO; DEXAMETHASONE6 MG PO; IBLOOD GLUCOSE TEST STRIP 1 EA TEST VI PRN; LACTATED RINGER'S 1,000 ML IV SCH; LIDOCAINE HCL 1% 5 ML SDV INJ ONE
[2024-05-02 09:47] VITALS: BP 135/78
[2024-05-02] MEDS ORDERED: propofoL 200 MG/20 ML VIAL ONE ×2 (10:12→10:56)
[2024-05-02] MEDS ORDERED: ondansetron HCL 4 MG/2 ML VIAL ONE (10:13)
[2024-05-02] MEDS ORDERED: LIDOCAINE HCL 2% 5 ML SDV ONE (10:13)
[2024-05-02] MEDS ORDERED: fentaNYL citrate 100 MCG/2 ML VIAL ONE (10:13)
[2024-05-02] MEDS ORDERED: IBLOOD GLUCOSE TEST STRIP 1 EA TEST VI PRN (10:30)
[2024-05-02] MEDS ORDERED: HYDROmorphone HCL 1 MG/ML SYR IV PRN (10:30)
[2024-05-02] MEDS ORDERED: PROCHLORPERAZINE EDISYLATE 10 MG/2 ML VIAL IV PRN (10:30)
[2024-05-02] MEDS ORDERED: KETOROLAC TROMETHAMINE 30 MG/ML VIAL ONE (10:30)
[2024-05-02] MEDS ORDERED: droPERidol 5 MG/2 ML VIAL IV PRN (10:30)
[2024-05-02] MEDS ORDERED: ondansetron HCL 4 MG/2 ML VIAL IV PRN (10:30)
[2024-05-02] MEDS ORDERED: fentaNYL citrate 50 MCG/ML SDV IV PRN (10:30)
[2024-05-02] MEDS ORDERED: ACETAMINOPHEN 1,000 MG/100 ML VIAL ONE (10:30)
[2024-05-02] MEDS ORDERED: NALOXONE HCL 0.4 MG SYR IV PRN ×2 (10:30→11:30)
[2024-05-02] MEDS ORDERED: ACETAMINOPHEN 500 MG TAB PO PRN (11:30)
[2024-05-02] MEDS ORDERED: IBUPROFEN 600 MG TAB PO PRN (11:30)
[2024-05-02] MEDS ORDERED: OXYCODONE/APAP 7.5/325 TAB PO PRN (11:30)
[2024-05-02] MEDS ORDERED: ACETAMINOPHEN500 MG PO (11:32)
[2024-05-02] MEDS ORDERED: OXYCODON-ACETA1 EAC2 PO (11:32)
[2024-05-02] MEDS ORDERED: IBUPROFEN600 MG PO (11:32)
--- NOTE | 2024-05-02 11:35 | NUR ---
05/02/24 1135 Zully Salcedo 1119- PT ARRIVES TO PACU, SEMI ROMERO POSITION. PT AWAKE BUT DROWSY. PT REPORTS SOME TENDERNESS TO THE AREA BUT NOT PAINFUL. DENIES NAUSEA. DRESSINGS IN PLACE, CDI. LR INFUSING TO LFA IV. PT ON ROOM AIR, BREATHING EVEN AND NON LABORED. ABD SOFT, NON DISTENDED. PT ANSWERING QUESTIONS APPROPRIATELY. 1122- PT REQUESTING ICE WATER, TOLERATING WELL. MO SIGNS OF DISTRESS.
[2024-05-02 12:18] VITALS: BP 133/89
--- NOTE | 2024-05-05 13:56 | OR ---
[facility] [address] [place], [place] [address] Signed DATE OF OPERATION: 05/02/2024 SURGEON: Nessa Clayton MD PREOPERATIVE DIAGNOSES: Symptomatic soft tissue mass right posterior thorax and scapula and posterior lower mid thorax. POSTOPERATIVE DIAGNOSES: 1. 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 PROCEDURES: 1. Excision of right scapular 3 cm lipomatous mass. 2. Excision of right erector spinae intramuscular lipomatous mass 4. ANESTHESIA: Local with monitored anesthesia care; Steve Andrade CRNA and local 10 mL of 0.25% Marcaine with epinephrine. INDICATION: This 53-year-old white man is a patient of KAREN Brown. He was seen recently by me noting a soft tissue mass in his right scapular area which has been present for a while and I had seen in the past and offered excision. It is about the same size, but it is increasingly symptomatic. He additionally has a similar mass just to the right of the midline spine lower in the posterior thorax. He was admitted at this time to undergo excision of both masses with local and monitored anesthesia care given their possible depth. Risks of bleeding, infection, recurrence, need for additional treatment and so forth were reviewed in detail. He understands, wished to proceed. FINDINGS: The scapular lesion was quite clearly a lipomatous mass and rested against the fascia of the scapular muscle complex. It was completely excised. The lesion in the posterior midline just to the right was actually an intramuscular (erector spinae lipomatous mass). It was shelled out of the muscular compartment without problem. DESCRIPTION OF PROCEDURE: The patient was brought to the operating room, placed in lateral decubitus position left side down. Careful padding of pressure points was undertaken. The areas in question had been previously marked in the preoperative area. The posterior thorax was prepared Electronically Signed By: NESSA CLAYTON MD 05/05/24 1356 PATIENT NAME: CAESAR LOPEZ JR OPERATIVE REPORT DATE OF : 70 REPORT #: [id number] PHYSICIAN: NESSA CLAYTON MD PCP: MONAE VANEGAS PA-C REPORT IS CONFIDENTIAL AND NOT TO BE RELEASED WITHOUT AUTHORIZATION [facility] [address] [place], [place] [address] Signed with a chlorhexidine solution and draped sterilely. The lesion over the right scapular area was fully identified and a field block undertaken with 0.25% Marcaine with epinephrine. Similarly, the posterior midline more inferior lesion just to the right of the midline was anesthetized with a field block as well. Incision made along the line of skin tension on the right scapular area. Dissection carried through the dermis, encountering the area of the lipomatous mass. This dissected free from the surrounding soft tissue with blunt electrocautery dissection extended down to the fascial layer of the muscle itself. It is completely removed. It measured 3 cm or so. This passed for final pathology. The wound was closed in layers of interrupted 2-0 Vicryl and running subcuticular 3-0 Vicryl for the skin. Attention was then turned towards the midline inferior thorax lesion. This was incised just off the midline vertically along the line of skin tension. Dissection carried through the subcutaneous tissue and dermis, showing no sign of lipomatous mass. Palpation revealed the mass to be beneath the erector spinae muscle. The erector spinae muscle was in its fibers with a hemostat, confirming an intramuscular lipomatous mass. It was smooth walled, did not emanate as a sarcomatous mass in any way. With blunt dissection, it was shelled out of the muscular confines fully and measured approximately 4 cm in length. The fascial layer was reapproximated with interrupted 2-0 Vicryl as was the deep dermal layer and running subcuticular 3-0 Vicryl was used for the skin. Steri-Strips were applied to both areas and Acticoat dressing was applied as well. He tolerated the procedure well. Blood loss was minimal. Complications none. MD HEBERT Lopes/JAYL /[id number] cc: Monae Vanegas PA-C Copies: MONAE VANEGAS PA-C ~ Electronically Signed By: NESSA CLAYTON MD 05/05/24 1356 PATIENT NAME: CAESAR LOPEZ OPERATIVE REPORT DATE OF : 70 REPORT #: [id number] PHYSICIAN: NESSA CLAYTON MD PCP: MONAE VANEGAS PA-C REPORT IS CONFIDENTIAL AND NOT TO BE RELEASED WITHOUT AUTHORIZATION
--- NOTE | 2024-05-07 08:01 | PATH ---
[facility] [address] [place], [place] [address] Signed SPECIMEN(S): A RIGHT SCAPULA SPECIMEN(S): B SUBMUSCULAR RIGHT POSTERIOR THORAX SPECIMEN SOURCE: A. RIGHT SCAPULA B. SUBMUSCULAR RIGHT POSTERIOR THORAX v CLINICAL HISTORY: Lipoma posterior thorax and lipoma right shoulder FINAL PATHOLOGIC DIAGNOSIS: A. Soft tissue, right scapula, excision: - Mature adipose tissue, consistent with lipoma B. Soft tissue, right posterior, excision: - Mature adipose tissue, consistent with lipoma BRP MICROSCOPIC EXAMINATION: Histologic sections of all submitted blocks are examined by light microscopy. These findings, together with the gross examination, support the pathologic diagnosis. GROSS DESCRIPTION: A. The specimen, labeled and designated "Nam Lopez., right scapular soft tissue mass," is received in formalin and consists of 4.5 x 4.5 x 2.1 cm portion of yellow lobulated fibroadipose tissue. The outer surface is inked blue and the specimen is serially section revealing a yellow homogenous cut surface. There are no discrete areas of hemorrhage or necrosis. [employer] sections are submitted in cassette A1. B. The specimen, labeled and designated "Ramesh, D., subscapular right posterior thorax soft tissue mass," is received in formalin and consists of a 3.7 x 2 x 1.6 cm portion reveal lobulated fibroadipose tissue. The outer surface is inked blue and the specimen is serially sectioned revealing a yellow homogenous cut surface. There are no discrete areas of hemorrhage or necrosis. [employer] Service [employer] sections are submitted in cassette B1. AA (under the direct supervision of a pathologist) The Gross Description was prepared using a voice recognition system. The report PATIENT NAME: CAESAR LOPEZ JR PATHOLOGY DATE OF : 70 REPORT #: [id number] PHYSICIAN: ANTHONY CUEVA PCP: CURLY PERDOMO PA-C REPORT IS CONFIDENTIAL AND NOT TO BE RELEASED WITHOUT AUTHORIZATION [facility] [address] [place], [place] [address] Signed was reviewed for accuracy; however, sound-alike word errors, addition and/or deletions may occur. If there is any question about this report, please contact Client Services. ADDITIONAL NOTES: Immunohistochemical and/or in situ hybridization studies if performed in this case included appropriate positive controls that reacted as expected. This test was developed and its performance characteristics determined by [facility]. It has not been cleared or approved by the U.S. Food and Drug Administration. The FDA has determined that such clearance or approval is not necessary. This test is used for clinical purposes. It should not be regarded as investigational or for research. [facility] is certified under the Clinical Laboratory Improvement Amendments of 1988 (CLIA) as qualified to perform high complexity clinical laboratory testing. PERFORMING LABORATORY: Technical component was performed by [facility], [address] [place] [address] (CLIA# [id number]). Professional interpretation was performed by [facility], [address] [place] [address] (CLIA#: [id number]). Diagnostician: Osei Stewart MD Pathologist Electronically Signed 05/07/2024 Copies: ~ PATIENT NAME: CAESAR LOPEZ PATHOLOGY DATE OF : 70 REPORT #: [id number] PHYSICIAN: ANTHONY PATHOLOGY PCP: CURLY PERDOMO PA-C REPORT IS CONFIDENTIAL AND NOT TO BE RELEASED WITHOUT AUTHORIZATION
== END 2024-05-02 11:50 | disposition home or self-care (01) ==
LOC: DS 09:40 → OPS 09:40
PROVIDERS: ATTEND Surgery
PROC: 0JB70ZZ Excision of Back Subcutaneous Tissue and Fascia, Open Approach (ICD-10-PCS; principal; 2024-05-02 09:40)
DX: D17.1 Benign lipomatous neoplasm of skin and subcutaneous tissue of trunk (principal); D17.79 Benign lipomatous neoplasm of other sites
CPT/HCPCS: 00400; J0131; J0690; J1885; J2003; J2405; J2704; J3010; J7121

== ENCOUNTER 2024-05-02 16:54 | Day surgery (SDC) | payer BC ==
[2024-05-02] MEDS ORDERED: fentaNYL citrate 100 MCG/2 ML VIAL ONE (17:00)
[2024-05-02] MEDS ORDERED: MIDAZOLAM HCL 2 MG/2 ML VIAL ONE ×2 (17:00→17:15)
[2024-05-02] MEDS ORDERED: ondansetron HCL 4 MG/2 ML VIAL ONE (17:09)
--- NOTE | 2024-05-02 17:57 | NUR ---
05/02/241756 Barbara Reynoso 175: PT ARRIVES TO PACU COMPLETELY AWAKE AND ALERT. SG 175: PT AR THE BEDSIDE. DR. CLAYTON AT THE BEDSIDE TO SPEAK WITH PT AND .
[2024-05-02 18:01] VITALS: BP 117/81
[2024-05-02] MEDS ORDERED: NALOXONE HCL 0.4 MG SYR IV PRN (18:15)
== END 2024-05-02 18:10 | disposition home or self-care (01) ==
LOC: DS 16:54
PROVIDERS: ATTEND Surgery
PROC: 0K9 Muscles, Drainage (ICD-10-PCS; principal; 2024-05-02)
DX: S20.224A Contusion of middle back wall of thorax, initial encounter (principal); X58.XXXA Exposure to other specified factors, initial encounter
CPT/HCPCS: J2250; J2405; J3010